=== PATIENT | male | born 1975 | race Caucasian/White ===

== ENCOUNTER 2021-08-06 13:56 | Emergency (ER) | payer BC ==
[2021-08-06] MEDS ORDERED: Lidocaine 1% (PF) 30 ML VIAL ONE (15:08)
[2021-08-06] MEDS ORDERED: HYDROcodone/Acetaminophen 10/325 mg Tablet ONE (15:08)
[2021-08-06] MEDS ORDERED: Boostrix 0.5 ML (Tdap) VIAL ONE (15:08)
== END 2021-08-06 16:37 | disposition home or self-care (01) ==
LOC: ERS 13:56
DX: S61.311A Laceration without foreign body of left index finger with damage to nail, initial encounter (principal); S67.191A Crushing injury of left index finger, initial encounter; W26.8XXA Contact with other sharp object(s), not elsewhere classified, initial encounter; Z23 Encounter for immunization; I10 Essential (primary) hypertension; F17.220 Nicotine dependence, chewing tobacco, uncomplicated
CPT/HCPCS: 12001; 90471; 90715; J2001

== ENCOUNTER 2021-08-13 10:53 | Day surgery (SDC) | payer BC, SELFPAY ==
[~2021-08-13 10:53] MED LIST: Iopamidol-370 76% 500 ML 1 ML ONE
[2021-08-13 11:41] LABS: #Basophils 0.1 thou/uL (0.0-0.2); #Eosinphils 0.1 thou/uL (0.0-0.7); #Lymphocytes 1.3 thou/uL (1.20-3.40); #Monocytes 0.9 thou/uL (0.11-0.59); #Neutrophils 8.5 thou/uL (1.40-6.50); %Basophils 0.5 % (0.0-1.0); %Eosinophils 0.7 % (0.0-10.0); %Lymphocytes 12.2 % (21.0-51.0); %Monocytes 8.1 % (0.0-10.0); %Neutrophils 78.6 % (42.0-75.0); Hemoglobin 15.6 g/dL (14.0-18.0); Mean Corpuscular HGB CONC 33.9 g/dL (32.0-36.0); Mean Corpuscular Hemoglobin 30.5 pg (27.0-31.0); Mean Corpuscular Volume 89.9 fL (78.0-98.0); Mean Platelet Volume 7.5 fL (7.4-10.4); Platelet Count 203 thou/uL (130-400); RBC Distribution Width 12.1 % (11.5-14.5); Red Blood Cell (RBC) Count 5.13 mill/uL (4.70-6.10); White Blood Cell (WBC) Count 10.8 thou/uL (4.8-10.8)
[2021-08-13] MEDS ORDERED: Morphine 4 MG/ML VIAL ONE (11:44)
[2021-08-13] MEDS ORDERED: Ondansetron PF 4 MG/2 ML Vial ONE ×2 (11:44→16:41)
[2021-08-13 12:02] LABS: ALT (SGPT) 30 U/L (8-55); AST (SGOT) 19 U/L (5-34); Albumin 4.5 g/dL (3.5-5.0); Alkaline Phosphatase 88 U/L (40-110); Anion Gap 15 mmol/L (10-20); BUN (Urea Nitrogen) 16 mg/dL (8.9-20.6); Bilirubin, Total 0.9 mg/dL (0.2-1.2); Calc. Creatinine Clearance 0 mL/min (70-130); Calcium 9.5 mg/dL (7.8-10.44); Carbon Dioxide 25 mmol/L (22-29); Chloride 102 mmol/L (98-107); Globulin 3.3 g/dL (2.4-3.5); Glucose 105 mg/dL (70-105); Potassium 3.7 mmol/L (3.5-5.1); Protein, Total 7.8 g/dL (6.0-8.3); Sodium 138 mmol/L (136-145)
[2021-08-13] MEDS ORDERED: Ketorolac Tromethamine 30 MG/ML VIAL ONE (13:29)
[2021-08-13] MEDS ORDERED: Piperacillin/Tazobactam 4.5 GM VIAL ONE (14:28)
[2021-08-13] MEDS ORDERED: Midazolam HCl 2 mg/2 ml Vial ONE (15:02)
[2021-08-13] MEDS ORDERED: fentaNYL Citrate/PF 100 MCG/2 ML SYRINGE ONE (15:02)
[2021-08-13] MEDS ORDERED: Famotidine/PF 20 mg/2ml Vial ONE (15:03)
[2021-08-13] MEDS ORDERED: HYDROmorphone 0.5 MG/0.5 ML SYRINGE ONE (15:03)
[2021-08-13] MEDS ORDERED: PROPOFOL 200 MG/20 ML VIAL ONE (16:41)
[2021-08-13] MEDS ORDERED: Lidocaine 1% PF 5 ML VIAL ONE (16:41)
[2021-08-13] MEDS ORDERED: Dexamethasone 20 MG/5 ML VIAL ONE (16:41)
[2021-08-13] MEDS ORDERED: Glycopyrrolate 0.2 MG/ML 5 ML SYRINGE ONE (16:41)
[2021-08-13] MEDS ORDERED: Succinylcholine 200 MG/10 ml SYRINGE FS ONE (16:41)
[2021-08-13] MEDS ORDERED: Rocuronium Bromide 10 MG/ML (10ML VIAL) ONE (16:41)
[2021-08-13] MEDS ORDERED: Metoclopramide HCl 10 MG/2 ML VIAL ONE (16:41)
[2021-08-13 16:47] LABS: SARS-CoV-2 NAA Rapid Test Not Detected (NotDetected)
[2021-08-13] MEDS ORDERED: SUGAMMADEX SODIUM 200 MG/2 ML VIAL ONE (17:33)
[2021-08-13] MEDS ORDERED: Fentanyl 100 MCG/2 ML VIAL ONE (17:56)
== END 2021-08-13 19:30 | disposition home or self-care (01) ==
LOC: ERS 10:53 → SDC 14:44
PROVIDERS: ATTEND Surgery
PROC: 0DTJ4ZZ Resection of Appendix, Percutaneous Endoscopic Approach (ICD-10-PCS; principal; 2021-08-13)
DX: K35.80 Unspecified acute appendicitis (principal); I10 Essential (primary) hypertension; F17.220 Nicotine dependence, chewing tobacco, uncomplicated; Z20.822 Contact with and (suspected) exposure to COVID-19
CPT/HCPCS: 36415; 74177; 76705; 80053; 83605; 85025; 87040; 87086; 88304; 93005; 96374; 96375; A4649; J1100; J1170; J1885; J2250; J2270; J2405; J2543; J2704; J2765; J3010; Q9967; S0028; U0002